=== PATIENT | male | born 1975 | race Caucasian/White ===

== ENCOUNTER 2018-12-15 10:15 | Day surgery (SDC) | payer BC, OTHER ==
[~2018-12-15 10:15] MED LIST: Lactated Ringers 1,000 ML IV SCH; Lidocaine 2% 5 ML SDV ONE; Propofol 200 MG/20 ML SDV ONE
--- NOTE | 2018-12-15 10:42 | PCM.PREANE ---
Preanesthetic Assessment - Anesthesia/Transfusion/Family Hx Anesthesia History: Prior Anesthesia Without Reaction Other Type of Anesthesia Reaction Comment: "mother has a hard time coming out of anesthesia" Family History of Anesthesia Reaction: No Transfusion History: No Prior Transfusion(s) - Review of Systems General: No Symptoms Pulmonary: No Symptoms Cardiovascular: No Symptoms Neurological: No Symptoms Other: Reports: None - Physical Assessment NPO Status Date: 12/14/18 Height: 6 ft 1 in Weight: 80.739 kg ASA Class: 2 Mental Status: Alert & Oriented x3 Airway Class: Mallampati = 1 Dentition: Reports: Normal Dentition ROM/Head Extension: Full Lungs: Clear to Auscultation, Normal Respiratory Effort Cardiovascular: Regular Rate, Regular Rhythm - Allergies Allergies/Adverse Reactions: Allergies Allergy/AdvReac Type Severity Reaction Status Date / Time No Known Allergies Allergy Verified 12/13/18 07:29 - Blood Blood Available: No - Anesthesia Plan Pre-Op Medication Ordered: None - Acknowledgements Anesthesia Type Planned: MAC Pt an Appropriate Candidate for the Planned Anesthesia: Yes Alternatives and Risks of Anesthesia Discussed w Pt/Guardian: Yes Pt/Guardian Understands and Agrees with Anesthesia Plan: Yes Additional Comments: PMH: htn, gerd, sleeps poorly but never tested for ELI, s/p ant cervical fusion PLAN: MAC/TIVA PreAnesthesia Questionnaire HEENT History: Reports: Other (See Below) Other HEENT History: wears glasses Cardiovascular History: Reports: Hypertension Gastrointestinal History: Reports: GERD Genitourinary History: Reports: Renal Calculus Musculoskeletal History: Reports: Fracture Other Musculoskeletal History: hx fx collarbone Psychiatric History: Reports: Anxiety - Past Surgical History Head Surgeries/Procedures: Reports: None GI Surgical History: Reports: Colonoscopy Neurological Surgical History: Reports: Lumbar Spine Other Neurological Surgeries/Procedures: hx back surgery via neck for herniated disc, has hardware to back - SUBSTANCE USE Smoking Status *Q: Never Smoker Recreational Drug Use History: No - HOME MEDS Home Medications: Home Meds Esomeprazole Magnesium [Nexium] 40 mg PO DAILY 12/13/18 [History] Lisinopril 20 mg PO DAILY 12/13/18 [History] - CURRENT (IN HOUSE) MEDS Current Meds: Current Medications Lactated Ringer's (Ringers, Lactated) 1,000 mls @ 125 mls/hr IV ASDIRECTED KELLY Discontinued Medications Lidocaine (Xylocaine-Mpf 2%) Confirm Administered Dose 5 ml .ROUTE .STK-MED ONE Stop: 12/15/18 08:10 Propofol (Diprivan 20 Ml) Confirm Administered Dose 400 mg .ROUTE .STK-MED ONE Stop: 12/15/18 08:11
--- NOTE | 2018-12-15 13:22 | PCM.OPNOTE ---
- General Post-Op/Procedure Note Date of Surgery/Procedure: 12/15/18 Operative Procedure(s): Esophagogastroduodenoscopy with gastric and esophageal biopsies and gastric polypectomy Pre Op Diagnosis: Epigastric pain with progressive heartburn. Post-Op Diagnosis: Acute and chronic gastritis. Gastric polyps. 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 Anesthesia Technique: MAC (ASA II) Primary Surgeon: Tyler Mayo Condition: Good Free Text/Narrative:: DICTATION [id number] CPT CODE 72317
[2018-12-15] MEDS ORDERED: Lactated Ringers 1,000 ML IV SCH (13:30)
--- NOTE | 2018-12-15 13:41 | PCM.POSTAN ---
POST ANESTHESIA ASSESSMENT - MENTAL STATUS Mental Status: Alert, Oriented - RESPIRATORY Respiratory Status: Respiratory Rate WNL, Airway Patent, O2 Saturation Stable - CARDIOVASCULAR CV Status: Pulse Rate WNL, Blood Pressure Stable - GASTROINTESTINAL GI Status: No Symptoms - POST OP HYDRATION Hydration Status: Adequate & Stable
--- NOTE | 2018-12-15 13:42 | PCM48HPAN ---
Post Anesthesia Note - EVALUATION WITHIN 48HRS OF ANESTHETIC Vital Signs in Normal Range: Yes Patient Participated in Evaluation: Yes Respiratory Function Stable: Yes Airway Patent: Yes Cardiovascular Function Stable: Yes Hydration Status Stable: Yes Pain Control Satisfactory: Yes Nausea and Vomiting Control Satisfactory: Yes Mental Status Recovered: Yes Resp Rate: 14
--- NOTE | 2018-12-15 13:47 | OR ---
SURGEON: Tyler Mayo M.D. DATE OF PROCEDURE: 12/15/2018 OPERATIONS PERFORMED: Esophagogastroduodenoscopy with gastric biopsies, gastric polypectomy, and esophageal biopsies. ANESTHESIA: MAC. ASA CLASSIFICATION: II. PREOPERATIVE DIAGNOSIS: Persistent heartburn with epigastric pain. POSTOPERATIVE DIAGNOSES: 1. Rmaw-[id number] gastritis. 2. Gastric polyps. 3. Esophagitis with changes suggestive of Randle esophagus. DESCRIPTION OF PROCEDURE: The patient was taken to the endoscopy room and positioned on the endoscopy table in the supine position. Time-out was called for appropriate identification of the patient and procedure. Monitored anesthesia care was provided. The bite block was placed between the patient's teeth. The gastroscope was inserted through the bite block into the oropharynx and advanced without difficulty through the esophagus and stomach into the duodenum where examination was now carried out in a retrograde fashion. The duodenum shows no acute inflammatory changes or ulcerations. The stomach does show mild-to- moderate acute gastritis. Antral biopsies were obtained to look for the presence of Helicobacter pylori. The gastroscope was retroflexed to visualize the proximal stomach. The patient did have some proximal gastric polyps and separate biopsies of these were obtained. No ulcers were seen in the proximal stomach and there were no tumors. The gastroscope was then straightened and slowly withdrawn aspirating the stomach as the scope was removed. The GE junction is at approximately 45 cm. For an area of 3 cm proximal to this, there are changes suggestive of Randle esophagus. Separate biopsies were obtained from this area. The esophagus demonstrated good contractility. No mid or proximal lesions were identified. The vocal cords were not able to be visualized as the scope was withdrawn. The scope was then removed with the patient having tolerated the procedure well. He was taken to recovery room in stable condition. LEONIDES / SABRINA /[id number]
== END 2018-12-15 13:57 | disposition home or self-care (01) ==
LOC: MW.SDS 10:15
PROVIDERS: ATTEND Surgery
DX: K29.50 Unspecified chronic gastritis without bleeding (principal); K31.7 Polyp of stomach and duodenum; K20.9 Esophagitis, unspecified; K21.9 Gastro-esophageal reflux disease without esophagitis; I10 Essential (primary) hypertension; G47.30 Sleep apnea, unspecified; F41.9 Anxiety disorder, unspecified; Z79.899 Other long term (current) drug therapy
CPT/HCPCS: 43239; J2704; J7120; 00731

== ENCOUNTER 2020-08-25 09:27 | Day surgery (SDC) | payer OTHER ==
--- NOTE | 2020-08-25 09:26 | PCM.PREANE ---
Preanesthetic Assessment - Anesthesia/Transfusion/Family Hx Anesthesia History: Prior Anesthesia Without Reaction Other Type of Anesthesia Reaction Comment: "mother has a hard time coming out of anesthesia" Family History of Anesthesia Reaction: No Transfusion History: No Prior Transfusion(s) - Review of Systems General: No Symptoms Pulmonary: No Symptoms Cardiovascular: No Symptoms Gastrointestinal: No Symptoms Neurological: No Symptoms Other: Reports: None - Physical Assessment NPO Status Date: 08/24/20 Height: 6 ft 1 in Weight: 83.915 kg ASA Class: 2 Mental Status: Alert & Oriented x3 Airway Class: Mallampati = 2 Dentition: Reports: Normal Dentition ROM/Head Extension: Full Lungs: Clear to Auscultation, Normal Respiratory Effort Cardiovascular: Regular Rate, Regular Rhythm - Allergies Allergies/Adverse Reactions: Allergies Allergy/AdvReac Type Severity Reaction Status Date / Time blister pack steroids Allergy Tachycardia Uncoded 08/19/20 09:29 - Blood Blood Available: No - Anesthesia Plan Pre-Op Medication Ordered: None - Acknowledgements Anesthesia Type Planned: General Anesthesia (tiva) Pt an Appropriate Candidate for the Planned Anesthesia: Yes Alternatives and Risks of Anesthesia Discussed w Pt/Guardian: Yes Pt/Guardian Understands and Agrees with Anesthesia Plan: Yes Additional Comments: PMH: htn, gerd, seizure disorder following [facility], has seizures about monthly, less frequently recently since medication change PLAN: tiva PreAnesthesia Questionnaire HEENT History: Reports: Other (See Below) Other HEENT History: wears glasses Cardiovascular History: Reports: Hypertension Respiratory History: Reports: None Gastrointestinal History: Reports: GERD Genitourinary History: Reports: Renal Calculus Musculoskeletal History: Reports: Fracture Other Musculoskeletal History: hx fx collarbone Other Neuro History: states is going to see a in [place] today requarding shooting pains in his legs Psychiatric History: Reports: Anxiety Endocrine/Metabolic History: Reports: None Hematologic History: Reports: None Immunologic History: Reports: None Oncologic (Cancer) History: Reports: None Dermatologic History: Reports: None - Infectious Disease History Infectious Disease History: Reports: None - Past Surgical History Head Surgeries/Procedures: Reports: None GI Surgical History: Reports: Colonoscopy, EGD Neurological Surgical History: Reports: C-Spine Other Neurological Surgeries/Procedures: states had neck surgery for herniated disc, has hardware to neck - SUBSTANCE USE Smoking Status *Q: Never Smoker - HOME MEDS Home Medications: Home Meds Esomeprazole Magnesium [Nexium] 40 mg PO DAILY 12/13/18 [History] Lisinopril 20 mg PO DAILY 12/13/18 [History] - CURRENT (IN HOUSE) MEDS Current Meds: Current Medications Discontinued Medications Fentanyl (Sublimaze) Confirm Administered Dose 100 mcg .ROUTE .STK-MED ONE Stop: 08/25/20 08:11 Lidocaine HCl (Xylocaine-Mpf 1%) Confirm Administered Dose 5 ml .ROUTE .STK-MED ONE Stop: 08/25/20 08:11 Midazolam HCl (Versed 1 Mg/Ml) Confirm Administered Dose 2 mg .ROUTE .STK-MED O NE Stop: 08/25/20 08:11 Propofol (Diprivan 20 Ml) Confirm Administered Dose 200 mg .ROUTE .STK-MED ONE Stop: 08/25/20 08:10
[~2020-08-25 09:27] MED LIST changes: -Lactated Ringers 1,000 ML IV SCH; -Lidocaine 2% 5 ML SDV ONE; +Midazolam 1 MG/ML 2 ML SDV ONE; +fentaNYL 100 MCG/2 ML SDV ONE
--- NOTE | 2020-08-25 11:03 | PCM.PREANE ---
Preanesthetic Assessment - Anesthesia/Transfusion/Family Hx Anesthesia History: Prior Anesthesia Without Reaction Other Type of Anesthesia Reaction Comment: "mother has a hard time coming out of anesthesia" Family History of Anesthesia Reaction: No Transfusion History: No Prior Transfusion(s) - Review of Systems General: No Symptoms Pulmonary: No Symptoms Cardiovascular: No Symptoms Gastrointestinal: No Symptoms Neurological: No Symptoms Other: Reports: None - Physical Assessment NPO Status Date: 08/24/20 Height: 6 ft 1 in Weight: 83.915 kg ASA Class: 2 Mental Status: Alert & Oriented x3 Airway Class: Mallampati = 2 Dentition: Reports: Normal Dentition ROM/Head Extension: Full Lungs: Clear to Auscultation, Normal Respiratory Effort Cardiovascular: Regular Rate, Regular Rhythm - Allergies Allergies/Adverse Reactions: Allergies Allergy/AdvReac Type Severity Reaction Status Date / Time blister pack steroids Allergy Tachycardia Uncoded 08/19/20 09:29 - Blood Blood Available: No - Acknowledgements Anesthesia Type Planned: General Anesthesia (tiva) Pt an Appropriate Candidate for the Planned Anesthesia: Yes Alternatives and Risks of Anesthesia Discussed w Pt/Guardian: Yes Pt/Guardian Understands and Agrees with Anesthesia Plan: Yes PreAnesthesia Questionnaire HEENT History: Reports: Other (See Below) Other HEENT History: wears glasses Cardiovascular History: Reports: Hypertension Respiratory History: Reports: None Gastrointestinal History: Reports: GERD Genitourinary History: Reports: Renal Calculus Musculoskeletal History: Reports: Fracture Other Musculoskeletal History: hx fx collarbone Other Neuro History: states is going to see a in [place] today requarding shooting pains in his legs Psychiatric History: Reports: Anxiety Endocrine/Metabolic History: Reports: None Hematologic History: Reports: None Immunologic History: Reports: None Oncologic (Cancer) History: Reports: None Dermatologic History: Reports: None - Infectious Disease History Infectious Disease History: Reports: None - Past Surgical History Head Surgeries/Procedures: Reports: None GI Surgical History: Reports: Colonoscopy, EGD Neurological Surgical History: Reports: C-Spine Other Neurological Surgeries/Procedures: states had neck surgery for herniated disc, has hardware to neck - SUBSTANCE USE Smoking Status *Q: Never Smoker - HOME MEDS Home Medications: Home Meds Esomeprazole Magnesium [Nexium] 40 mg PO DAILY 12/13/18 [History] Lisinopril 20 mg PO DAILY 01/16/19 [History] - CURRENT (IN HOUSE) MEDS Current Meds: Current Medications Discontinued Medications Fentanyl (Sublimaze) Confirm Administered Dose 100 mcg .ROUTE .STK-MED ONE Stop: 08/25/20 08:11 Lidocaine HCl (Xylocaine-Mpf 1%) Confirm Administered Dose 5 ml .ROUTE .STK-MED ONE Stop: 08/25/20 08:11 Midazolam HCl (Versed 1 Mg/Ml) Confirm Administered Dose 2 mg .ROUTE .STK-MED ONE Stop: 08/25/20 08:11 Propofol (Diprivan 20 Ml) Confirm Administered Dose 200 mg .ROUTE .STK-MED ONE Stop: 08/25/20 08:10
[2020-08-25] MEDS ORDERED: Lactated Ringers 1,000 ML IV SCH ×2 (11:30→13:30)
[2020-08-25] MEDS ORDERED: Propofol 200 MG/20 ML SDV ONE (13:12)
--- NOTE | 2020-08-25 13:27 | PCM.OPNOTE ---
- General Post-Op/Procedure Note Date of Surgery/Procedure: 08/25/20 Operative Procedure(s): Esophagogastroduodenoscopy with gastric and esophageal biopsies and biopsy, gastric polyps Pre Op Diagnosis: Chronic progressive gastroesophageal reflux disease with persistent heartburn. Post-Op Diagnosis: Chronic gastritis. Esophagitis. Gastric polyps. Anesthesia Technique: MAC (ASA II) Primary Surgeon: Tyler Mayo Condition: Good Free Text/Narrative:: DICTATION [id number] CPT CODE 81212
--- NOTE | 2020-08-25 14:10 | PCM.POSTAN ---
POST ANESTHESIA ASSESSMENT - MENTAL STATUS Mental Status: Alert, Oriented - VITAL SIGNS Vital Signs: Last Vital Signs Temp 97.3 F 08/25/20 09:50 Pulse 68 08/25/20 13:37 Resp 12 08/25/20 13:37 BP 114/68 08/25/20 13:37 Pulse Ox 94 L 08/25/20 13:37 - RESPIRATORY Respiratory Status: Respiratory Rate WNL, Airway Patent, O2 Saturation Stable - CARDIOVASCULAR CV Status: Pulse Rate WNL, Blood Pressure Stable - GASTROINTESTINAL GI Status: No Symptoms - POST OP HYDRATION Hydration Status: Adequate & Stable
--- NOTE | 2020-08-25 14:11 | PCM48HPAN ---
Post Anesthesia Note - EVALUATION WITHIN 48HRS OF ANESTHETIC Vital Signs in Normal Range: Yes Patient Participated in Evaluation: Yes Respiratory Function Stable: Yes Airway Patent: Yes Cardiovascular Function Stable: Yes Hydration Status Stable: Yes Pain Control Satisfactory: Yes Nausea and Vomiting Control Satisfactory: Yes Mental Status Recovered: Yes Vital Signs: Last Vital Signs Temp 97.3 F 08/25/20 09:50 Pulse 68 08/25/20 13:37 Resp 12 08/25/20 13:37 BP 114/68 08/25/20 13:37 Pulse Ox 94 L 08/25/20 13:37
--- NOTE | 2020-08-25 18:02 | OR ---
SURGEON: Tyler Mayo M.D. DATE OF PROCEDURE: 08/25/2020 OPERATION PERFORMED: Esophagogastroduodenoscopy with gastric and esophageal biopsies and gastric polypectomy biopsy. PRIMARY SURGEON: Tyler Mayo M.D. ANESTHESIA: MAC ASA CLASSIFICATION: II. PREOPERATIVE DIAGNOSIS: Chronic gastritis with reflux along with heartburn. POSTOPERATIVE DIAGNOSES: 1. Mild chronic gastritis. 2. Gastric polyps. 3. Distal esophagitis. DESCRIPTION OF PROCEDURE: The patient was taken to the endoscopy room and positioned on the endoscopy table in a supine position. Time-out was called for appropriate identification of the patient and procedure. Monitored anesthesia care was provided. Bite block was placed between the patient's teeth. The patient was then sedated appropriately for upper GI endoscopy. The gastroscope was inserted through the bite block into the oropharynx and advanced without difficulty through the esophagus and stomach into the duodenum, where examination was now carried out in a retrograde fashion. The duodenum showed no acute inflammatory changes or ulcerations. The stomach did show [id number] gastritis. Antral biopsies were obtained to look for the presence of Helicobacter pylori. No acute ulcerations were noted. The gastroscope was retroflexed to visualize the proximal stomach where the patient did have several small gastric polyps. Separate biopsies of these were obtained for histologic analysis. The scope was then straightened and slowly withdrawn carefully visualizing the greater and lesser curvatures. No ulcerations or tumors were noted. No significant hiatal hernia was noted. The patient did have mild to moderate changes in the distal esophagus suggestive of esophagitis and possible Randle's. Separate biopsies of this area were taken. The Z-line is at approximately 40 cm from the incisors. The esophagus itself demonstrated good contractility. No mid or proximal lesions were identified. The vocal cords were visualized as the scope was withdrawn and noted to move symmetrically. No lesions were identified on the vocal cords. The gastroscope was then removed with the patient having tolerated the procedure well. He was taken to recovery room in satisfactory condition. LEONIDES / SABRINA /[id number]
== END 2020-08-25 13:57 | disposition home or self-care (01) ==
LOC: MW.SDS 09:27
PROVIDERS: ATTEND Surgery
DX: K29.50 Unspecified chronic gastritis without bleeding (principal); K31.7 Polyp of stomach and duodenum; K21.0 Gastro-esophageal reflux disease with esophagitis; F41.9 Anxiety disorder, unspecified; K40.20 Bilateral inguinal hernia, without obstruction or gangrene, not specified as recurrent; G47.30 Sleep apnea, unspecified; I10 Essential (primary) hypertension; Z88.8 Allergy status to other drugs, medicaments and biological substances; Z79.899 Other long term (current) drug therapy; Z01.812 Encounter for preprocedural laboratory examination; Z20.828 Contact with and (suspected) exposure to other viral communicable diseases
CPT/HCPCS: 43239; 88305; 88312; J2001; J2250; J2704; J3010; J7120; 00731

== ENCOUNTER 2023-07-08 11:43 | Day surgery (SDC) | payer OTHER ==
[~2023-07-08 11:43] MED LIST changes: +Lactated Ringers 1,000 ML IV SCH; -Midazolam 1 MG/ML 2 ML SDV ONE; -Propofol 200 MG/20 ML SDV ONE; -fentaNYL 100 MCG/2 ML SDV ONE; +propofoL 50 ML ONE
[2023-07-08] MEDS ORDERED: Propofol 200 MG/20 ML SDV ONE (13:07)
[2023-07-08] MEDS ORDERED: Midazolam 1 MG/ML 2 ML SDV ONE (13:26)
[2023-07-08] MEDS ORDERED: Lactated Ringers 1,000 ML IV SCH (13:30)
== END 2023-07-08 14:25 | disposition home or self-care (01) ==
LOC: MW.SDS 11:43
PROVIDERS: ATTEND Surgery
DX: K29.50 Unspecified chronic gastritis without bleeding (principal); K21.00 Gastro-esophageal reflux disease with esophagitis, without bleeding; K44.9 Diaphragmatic hernia without obstruction or gangrene; K31.7 Polyp of stomach and duodenum; K31.89 Other diseases of stomach and duodenum; F41.9 Anxiety disorder, unspecified; I10 Essential (primary) hypertension; G47.30 Sleep apnea, unspecified; J30.9 Allergic rhinitis, unspecified; Z88.8 Allergy status to other drugs, medicaments and biological substances; Z79.899 Other long term (current) drug therapy
CPT/HCPCS: 43239; J2704; J7120; 00731; J2250